=== PATIENT | male | born 1960 | race Caucasian/White ===

== ENCOUNTER 2019-01-30 17:20 | Inpatient (IN) ==
[2019-01-30] MEDS ORDERED: PULMICORT INH ONE (17:42)
[2019-01-30] MEDS ORDERED: XOPENEX NEB INH ONE (17:42)
[2019-01-30] MEDS ORDERED: SOLU-MEDROL IV ONE (17:42)
[2019-01-30] MEDS ORDERED: NS NEB INH SCH (17:45)
--- NOTE | 2019-01-30 17:49 | PROVIDER DOCUMENTATION ---
HPI-Respiratory General - General Chief Complaint: Shortness of Breath Stated Complaint: COPD / SHORTNESS OF BREATH Time Seen by Provider: 01/30/19 17:22 Allergies/Adverse Reactions: Patient Allergies Allergy/AdvReac Type Severity Reaction Status Date / Time No Known Allergies Allergy Verified 01/30/19 17:53 Home Medications: Home Medication List Medication Instructions Recorded Confirmed Last Taken Type Albuterol Sulfate [Albuterol 8.5 gm IH Q4H PRN PRN #2 hfa.[id number].ad 05/24/18 Unknown Rx Sulfate Hfa] Azithromycin [Zithromax Z-Garrett] 250 mg PO DIRECTED #1 pkg 05/24/18 Unknown Rx Prednisone [Deltasone] 20 mg PO DAILY #5 tablet 05/24/18 Unknown Rx - History of Present Illness-Resp Nature of Presenting Problem: Presents to the with complaints of SOB and sputum with greenish discoloration. Patient states that this started about 3 days ago. He states that he thinks he is having a COPD exacerbation because of a bacterial infection. He denies any fevers or chills or cough with sputum but states he has noticed coughing with whitish sputum that he then blows out of his nose that is green. He states that he quit smoking about 1 month ago. He has tried using his albuterol inhaler every 4 hours but it is not helping. Review of Systems - Adult - REVIEW OF SYSTEMS - ADULT Constitutional: reports: see HPI. denies: chills, fever Eyes: reports: no symptoms reported Ears, Nose, Mouth & Throat: reports: no symptoms reported Cardiovascular: denies: chest pain, palpitations Respiratory: reports: see HPI, cough, dyspnea on exertion, shortness of breath Gastrointestinal: reports: no symptoms reported Genitourinary: reports: no symptoms reported Musculoskeletal: reports: no symptoms reported Integumentary: reports: no symptoms reported Neurological: reports: no symptoms reported Psychiatric: reports: no symptoms reported Endocrine: reports: no symptoms reported Hematologic/Lymphatic: reports: no symptoms reported Allergic/Immunologic: reports: no symptoms reported All Other Systems: Reviewed and Negative Past History - Adult - PAST MEDICAL HISTORY-ADULT Review of Records: reports: Medications Reviewed Major Childhood Illnesses: reports: denies history Cardiovascular: reports: denies history Respiratory: reports: denies history Gastrointestinal: reports: denies history Obstetrical/Gynecological: reports: denies history Genitourinary: reports: denies history Musculoskeletal: reports: denies history Neurological: reports: denies history Psychiatric: reports: denies history Endocrine/Immune: reports: denies history Other Conditions: reports: denies history - PRIOR SURGERIES/PROCEDURES Surgical/Procedure History: reports: reviewed, not pertinent - IMMUNIZATION STATUS Childhood Immunizations: See Nurse Assessment Flu Vaccine: See Nurse Assessment - FAMILY HISTORY Family History: reviewed, not pertinent Physical Exam-General - CONSTITUTIONAL General Appearance: alert, mild distress - EYES Eyes: PERRL/EOMI - HEAD, EARS, NOSE, MOUTH & THROAT HENMT: normocephalic/atraumatic, moist mucous membranes - NECK Neck: non-tender, full range of motion, supple - RESPIRATORY Respiratory: chest non-tender, decreased breath sounds (diffusely), accessory muscle use (mild tachypnea but speaks in full sentences), wheezing (diffusely) - CARDIOVASCULAR Cardiovascular: normal peripheral pulses, no murmur, tachycardia - GASTROINTESTINAL (ABDOMEN) Abdominal Exam: normal bowel sounds, non tender, soft - LYMPHATIC Lymphatic: no adenopathy - MUSCULOSKELETAL Back Exam: normal inspection Extremity: normal range of motion, normal gait - SKIN Integumentary: normal color, warm/dry - NEUROLOGIC Neurologic: grossly normal, no motor/sensory deficits - PSYCHIATRIC Psych/Mental Status: normal mood/affect, oriented x 3 - HEART Score HEART Score: History: Slightly Suspicious HEART Score: Age: 45-65 Years HEART Score: Risk Factors for Atherosclerotic Disease: 1 or 2 Risk Factors Progress - PLAN OF CARE/RESULTS Progress/Plan/Lab Results: Vital Signs - 8 hr 01/30/19 17:25 01/30/19 17:32 01/30/19 17:40 Temperature 100.7 F H Pulse Rate 140 H 133 H 133 H Respiratory Rate 18 27 H 27 H Blood Pressure 165/77 145/92 O2 Sat by Pulse Oximetry 90 L 91 L 91 L 01/30/19 17:50 01/30/19 18:00 01/30/19 18:02 Temperature Pulse Rate 134 H 127 H 124 H Respiratory Rate 28 H 14 15 Blood Pressure 136/90 O2 Sat by Pulse Oximetry 91 L 97 97 01/30/19 18:10 01/30/19 18:20 01/30/19 18:30 Temperature Pulse Rate 118 H 108 H 116 H Respiratory Rate 28 H 27 H 18 Blood Pressure O2 Sat by Pulse Oximetry 92 L 93 L 91 L 01/30/19 18:31 01/30/19 18:40 01/30/19 18:50 Temperature Pulse Rate 119 H 113 H 115 H Respiratory Rate 21 21 17 Blood Pressure 147/95 O2 Sat by Pulse Oximetry 91 L 91 L 91 L 01/30/19 19:00 01/30/19 19:01 01/30/19 19:10 Temperature Pulse Rate 111 H 108 H 108 H Respiratory Rate 26 H 22 25 H Blood Pressure 158/85 O2 Sat by Pulse Oximetry 91 L 92 L 91 L 01/30/19 19:50 Temperature Pulse Rate 124 H Respiratory Rate 20 Blood Pressure O2 Sat by Pulse Oximetry 01/30/19 18:53 Influenza Screen - Final Nasopharyngeal Laboratory Results - last 24 hr 01/30/19 01/30/19 01/30/19 17:50 17:50 17:50 WBC 31.31 H RBC 5.25 Hgb 16.3 Hct 46.9 MCV 89.3 MCH 31.0 MCHC 34.8 RDW Std Deviation 12.6 Plt Count 225 MPV 10.9 H Immature Gran % (Auto) 0.6 H Neut % (Auto) 88.9 H Lymph % (Auto) 4.6 L [place] % (Auto) 5.7 Eos % (Auto) 0.1 Baso % (Auto) 0.1 Immature Gran # (Auto) 0.18 H Neut # (Auto) 27.87 H Lymph # (Auto) 1.43 [place] # (Auto) 1.77 H Eos # (Auto) 0.02 Baso # (Auto) 0.04 Segmented Neutrophils 92 H Band Neutrophils 2 H Lymphocytes 3 L Monocytes 3 Sodium 135 L Potassium 3.8 Chloride 100 Carbon Dioxide 22 L Anion Gap 13 BUN 12 Creatinine 0.9 Estimated GFR/1.73 m2 > 60 BUN/Creatinine Ratio 13 Glucose 135 H Calculated Osmolality 272 Calcium 8.9 Total Bilirubin 1.06 H AST 18 ALT 23 Alkaline Phosphatase 81 [id number] Pept Total Protein 7.1 Albumin 4.3 Globulin 2.8 Albumin/Globulin Ratio 1.5 Plasma Lactate 1.1 Urine Source Urine Color Urine Turbidity Urine pH Ur Specific [place] Urine Protein Ur Glucose (Stick) Ur Ketones (Stick) Urine Blood Urine Nitrite Urine Bilirubin Urobilinogen Dipstick Urine Leukocytes Urine WBC (Auto) Urine RBC (Auto) U Epithel Cells (Auto) Urine Bacteria (Auto) 03/21/19 03/21/19 17:50 17:59 WBC RBC Hgb Hct MCV MCH MCHC RDW Std Deviation Plt Count MPV Immature Gran % (Auto) Neut % (Auto) Lymph % (Auto) [place] % (Auto) Eos % (Auto) Baso % (Auto) Immature Gran # (Auto) Neut # (Auto) Lymph # (Auto) [place] # (Auto) Eos # (Auto) Baso # (Auto) Segmented Neutrophils Band Neutrophils Lymphocytes Monocytes Sodium Potassium Chloride Carbon Dioxide Anion Gap BUN Creatinine Estimated GFR/1.73 m2 BUN/Creatinine Ratio Glucose Calculated Osmolality Calcium Total Bilirubin AST ALT Alkaline Phosphatase Clq-P-Fvgtrinjrht Pept 106 Total Protein Albumin Globulin Albumin/Globulin Ratio Plasma Lactate Urine Source CLEAN CATCH Urine Color YELLOW Urine Turbidity CLEAR Urine pH 7.0 Ur Specific [place] 1.025 Urine Protein 30 A Ur Glucose (Stick) NEGATIVE Ur Ketones (Stick) 10 A Urine Blood TRACE A Urine Nitrite NEGATIVE Urine Bilirubin NEGATIVE Urobilinogen Dipstick 3 A Urine Leukocytes NEGATIVE Urine WBC (Auto) <10 Urine RBC (Auto) <10 U Epithel Cells (Auto) <10 Urine Bacteria (Auto) NEGATIVE Orders Category Date Time Status CHEST-2 VIEWS [RAD] Stat Exams 01/30/19 17:[address] THORAX W/O CONTRAST [CT] Stat Exams 01/30/19 20:20 Ordered BLOOD CULTURE [BLDCUL] Stat Lab 01/30/19 18:50 Results CBC WITH ELECTRONIC DIFF [HEME] Stat Lab 01/30/19 17:50 Completed COMPREHENSIVE METABOLIC PANEL [CHEM] Stat Lab 01/30/19 17:50 Completed INFLUENZA SCREEN A/B Stat Lab 01/30/19 18:53 Completed LACTATE, PLASMA [CHEM] Stat Lab 01/30/19 17:50 Completed LACTATE, PLASMA [CHEM] Stat Lab 01/30/19 18:43 Ordered PRO B-NATRIURETIC PEPTIDE Stat Lab 01/30/19 17:50 Completed URINALYSIS W/POSS RFLX CULT [URINALYSIS] Stat Lab 01/30/19 17:59 Completed URINE CULTURE [RM] Routine Lab 01/30/19 17:59 Received 0.9% Sodium Chloride Inj [Ns] 1,000 ml Med 01/30/19 18:32 Discontinued IV Wide Open mls/hr 0.9% Sodium Chloride Inj [Ns] 50 ml Med 01/30/19 18:49 Discontinued .ROUTE As directed Acetaminophen [Tylenol] Med 01/30/19 18:59 Discontinued 1,000 mg PO NOW ONE Azithromycin 500 mg/Ns [Zithromax 500 mg/Ns] Med 01/30/19 20:05 Discontinued 500 mg in 250 ml .ROUTE As directed Azithromycin 500 mg/Ns [Zithromax 500 mg/Ns] Med 01/30/19 18:45 Ordered 500 mg in 250 ml IV Q24H Budesonide [Pulmicort] Med 01/30/19 17:42 Discontinued 0.5 mg INH NOW ONE CefTRIAXONE [Rocephin] Med 01/30/19 18:48 Discontinued 1 gm .ROUTE .STK-MED ONE CefTRIAXONE [Rocephin] 1 gm Med 01/30/19 18:45 Ordered 0.9% Sodium Chloride Inj [Ns] 50 ml IV Q24H Levalbuterol Neb [Xopenex Neb] Med 01/30/19 17:42 Discontinued 1.25 mg INH NOW ONE Methylprednisolone Sod Succ [Solu-Medrol] Med 01/30/19 17:42 Discontinued 125 mg IV NOW ONE Sodium Chloride 0.9% Neb [Ns Neb] Med 01/30/19 17:45 Active 5 ml INH DIRECTED Aerosol Treatments Routine Oth 01/30/19 17:43 Completed Aerosol Treatments Stat Oth 01/30/19 17:43 Completed EKG [EKG] Stat Ther 01/30/19 17:28 Ordered Result Diagrams: 01/30/19 17:50 01/30/19 17:50 - REASSESSMENT Reassessment #1 Time Reassessed: 19:38 (assumed Care @ shift change. Pt feels better after neb, sitting comfortably. Sats 91-92 on RA. Heart- tachycardia, lunds- no wheezes, scattered coarse sounds, no rhonchi) - EKG 1 Time of EKG reading by physician:: 17:37 EKG Read and Signed by:: Marylin Arita EKG Interpretation (*Must complete 3 of following elements*): Abnormal Rate: 126 Rhythm: Sinus tachycardia QRS: PVC's - CONSULTS/PCP/HOSPITALIST Notification #1 *Consult/PCP/Hospitalist*: [place] Time Discussed: 20:21 Reason/Comments: requests CT of chest Consult Disposition: Will see in ED, Admit - CHANGE OF SHIFT REPORT (ED Provider) 1 Report Given and Care Transferred to:: Dr Ramires Time of Transfer: 19:00 Items Pending: XRAY Results Comment: anticipate admission Departure - Departure Date of Disposition Decision: 01/30/19 Time of Disposition Decision: 20:22 DIAGNOSIS: COPD exacerbation Leukocytosis Qualifiers: Leukocytosis type: unspecified Qualified Code(s): D72.829 - Elevated white blood cell count, unspecified Disposition: ADMITTED INPATIENT 09 Certified Medical Emergency: Emergent Condition: Good Referrals and Follow-Ups: None,PCP [Primary Care Provider] - - Critical Care Note This patient required my direct & personal management of CC.: No Attestation - Physician/ ELIAN Attestation Patient care was provided by Advanced Practice Provider:: No The physician spent face to face time with patient:: Yes Advanced Practice Provider documentation review:: Supervising physician onsite and consulted in the evaluation and care of this patient. The physician did have a face to face encounter with the patient.
[2019-01-30 18:08] LABS: URINE SOURCE CLEAN CATCH
[2019-01-30 18:11] LABS: BILIRUBIN URINE NEGATIVE (NEGATIVE); BLOOD URINE TRACE (NEGATIVE); COLOR YELLOW; GLUCOSE URINE NEGATIVE (NEGATIVE); KETONE URINE 10 mg/dL (NEGATIVE); LEUKOCYTES URINE NEGATIVE (NEGATIVE); NITRITE URINE NEGATIVE (NEGATIVE); PROTEIN URINE 30 mg/dL (NEGATIVE); SP GRAVITY URINE 1.025; TURBIDITY URINE CLEAR (CLEAR); UR EPITHELIAL CELLS <10 /HPF (<10); URINE BACTERIA NEGATIVE /HPF; URINE RBC <10 /HPF (<10); URINE WBC <10 /HPF (<10); UROBILINOGEN URINE 3 mg/dL (NORMAL)
[2019-01-30 18:14] LABS: BASO# 0.04 X1000 (0.0-0.2); BASO% 0.1 % (0.0-0.8); EOS# 0.02 X1000 (0.0-0.7); EOS% 0.1 % (0.0-10.0); HEMATOCRIT 46.9 % (42.0-52.0); HEMOGLOBIN 16.3 g/dL (14.0-18.0); IMM GRAN# 0.18 X1000 (0.0-0.04); IMM GRAN% 0.6 % (0.0-0.5); LYMPH# 1.43 X1000 (1.2-3.4); LYMPH% 4.6 % (20.5-51.1); MCHC 34.8 g/dL (33-37); MCV 89.3 FL (81-99); MONO# 1.77 X1000 (0.11-0.59); MONO% 5.7 % (1.7-9.3); MPV 10.9 FL (7.4-10.4); NEUT# 27.87 X1000 (1.4-6.5); NEUT% 88.9 % (42.2-75.2); PLT 225 X1000 (130-400); RBC 5.25 XMIL (4.7-6.1); RDW 12.6 % (11.5-14.5); WBC 31.31 X1000 (4.8-10.8)
[2019-01-30 18:30] LABS: AGAP 13; ALB/GLOB RATIO 1.5; ALBUMIN 4.3 g/dL (3.5-5.0); ALKALINE PHOSPHATASE 81 U/L (32-122); BUN 12 mg/dL (8-22); CALCIUM 8.9 mg/dL (8.8-10.2); CHLORIDE 100 mmol/L (98-107); COSMO 272; CREATININE 0.9 mg/dL (0.7-1.2); ESTIMATED GFR > 60; GLUCOSE 135 mg/dL (70-104); GOT 18 U/L (10-34); GPT 23 U/L (10-44); POTASSIUM 3.8 mmol/L (3.5-5.1); SODIUM 135 mmol/L (136-145); TCO2 22 mmol/L (25-35); TOTAL BILIRUBIN 1.06 mg/dL (0.20-1.00); TOTAL PROTEIN 7.1 g/dL (6.3-8.3)
[2019-01-30] MEDS ORDERED: NS 1,000 ML IV ONE (18:32)
[2019-01-30 18:37] LABS: BANDS 2 % (0-1); LYMPHS 3 % (21-51); MONO 3 % (1-9); SEGS 92 % (42-75)
[2019-01-30] MEDS ORDERED: ROCEPHIN 1 GM in NS 50 ML IV SCH (18:45)
[2019-01-30] MEDS ORDERED: ZITHROMAX 500 MG/NS 500 MG/250 ML IVPB IV SCH (18:45)
[2019-01-30] MEDS ORDERED: ROCEPHIN ONE (18:48)
[2019-01-30] MEDS ORDERED: NS 50 ML ONE (18:49)
[2019-01-30] MEDS ORDERED: TYLENOL PO ONE (18:59)
--- NOTE | 2019-01-30 19:28 | Diag Imaging Result Doc PS360 ---
EXAM: CHEST-2 VIEWS 01/30/2019 HISTORY: COPD TECHNIQUE: PA and lateral chest COMMENT: The inspiration is less optimal than the previous examination, otherwise compared to the previous study of 05/24/2018 there has been no significant change in the appearance of the chest. IMPRESSION: No acute disease. Electronically signed by David Eddy 01/30/2019 7:26 PM
[2019-01-30] MEDS ORDERED: ZITHROMAX 500 MG/NS 500 MG/250 ML IVPB ONE (20:05)
--- NOTE | 2019-01-30 21:12 | Diag Imaging Result Doc PS360 ---
EXAM: CT THORAX W/O CONTRAST 01/30/2019 HISTORY: leukocytosis TECHNIQUE: This exam was performed using automated exposure control, adjustment of mA or kV according to patient size, and/or use of iterative reconstruction technique. COMMENT: The current examination is compared with the previous study of 03/31/2018. There are no abnormal fluid collections. There are patchy alveolar opacities in both lower lobes, the right middle lobe, and both upper lobes. The groundglass opacity which was previously present in the right middle lobe is no longer present but otherwise these findings were not present previously. The regional skeleton is intact. There are granulomatous calcifications in the right hilum. IMPRESSION: Bronchopneumonia. Electronically signed by David Eddy 01/30/2019 9:10 PM
--- NOTE | 2019-01-30 21:26 | HISTORY AND PHYSICAL ---
REASON FOR ADMISSION: Cough, shortness of breath for the last 4 days. HISTORY OF PRESENT ILLNESS: Mr. Lalo Tobar is a 58-year-old male with past medical history of COPD, who quit smoking a month ago. He says that since 4 days ago, he has been having sinus congestion, postnasal drip, culminating in increasing cough, nonproductive with worsening shortness of breath, more so with exertion. No chest pain or palpitations or anginal type symptoms. No leg swelling, extremity redness or pain, long distance travel, PND or orthopnea. No fever or chills. Had used his MDI rescue inhaler but not much relief and decided to get checked out in the ER. No GI or complaints, no focal neurological complaints. No outbreak of any rash, no joint swelling, polyuria, or polydipsia. REVIEW OF SYSTEMS: Twelve system review with nonpositive findings. ALLERGIES: No known allergies. MEDICATIONS: Albuterol MDI p.r.n. PAST SURGICAL HISTORY: Appendectomy, right arm surgery and testicular surgery. SOCIAL HISTORY: Does not smoke, drink or use illicit drugs. FAMILY HISTORY: No first degree relatives with heart disease or asthma. LABORATORY WORK: White count 71,000, hemoglobin and hematocrit 16 and 46, platelets 221 with 89% neutrophils. His sodium is 135, BUN is 12, creatinine 0.9, glucose 135, total bilirubin is 1. Urinalysis trace protein, ketones, blood. Chest x-ray, poor inspiratory effort, no overt infiltrate noted. Flu screen was negative. PHYSICAL EXAMINATION: VITAL SIGNS: Temperature is 100.7, pulse rate if 124, blood pressure 158/85, he is 91% on room air. When he ambulates it still stays 91% or 92%. GENERAL APPEARANCE: He is a middle aged man in very mild respiratory distress. He is alert and oriented to person, time, with normal mood and affect. HEAD: Normocephalic. EYES: PERRL. EOMI. He is anicteric, not pale. ENT: Oropharynx exam is grossly normal. NECK: Supple. No JVD, carotid bruits, or thyromegaly. CHEST: Diffuse wheezes in both lung dodge. There are a few coarse rales in the upper lobes. Decreased air entry in both dodge. CARDIOVASCULAR: First and second heart sounds heard. No gallops, murmurs or rubs. Rhythm is regular. ABDOMEN: Full, soft. No masses or megaly appreciated. Bowel sounds are normal.. RECTAL EXAM: Deferred at this time. EXTREMITIES: Good distal pulses in all extremities, symmetrical and regular. No edema, clubbing or peripheral cyanosis. No areas of tenderness in the lower extremities. NEUROLOGIC: No gross focal deficits. SKIN: Intact with no breakdown or erythema. . MUSCULOSKELETAL: Grossly normal. ASSESSMENT: 1. Chronic obstructive pulmonary disease exacerbation. 2. Leukocytosis with shortness of breath and fever. Consider pneumonia. 3. Hyponatremia. 4. Elevated blood pressure. PLAN: The patient will be admitted and treated for presumptive COPD exacerbation and/or underlying pneumonia. We will start the patient on short and longer-acting bronchodilator, steroids. We will start the patient on Zithromax and Rocephin pending noncontrast CT scan to rule out officially pneumonia. This is done because the patient could not take a full, deep inspiratory effort and admission clinical presentation, pneumonia is highly likely, i.e., dyspnea, white count and fever with a cough. We will await CT scan findings and a procalcitonin level will be beneficial in this kind of person to sway whether this is a reactive leukocytosis or the patient truly has pneumonia. cc: Cyndy Larry MD MTDD
[2019-01-30] MEDS ORDERED: ZITHROMAX PO ONE (22:21)
[2019-01-30] MEDS ORDERED: TYLENOL PO PRN (22:21)
[2019-01-30] MEDS ORDERED: ZOFRAN IV PRN (22:21)
[2019-01-30] MEDS: LOVENOX SUBQ SCH (23:05)
[2019-01-31] MEDS: DUONEB (A & A) INH SCH ×4 (03:08→21:08)
[2019-01-31 07:14] LABS: BASO# 0.01 X1000 (0.0-0.2); HEMATOCRIT 45.3 % (42.0-52.0); HEMOGLOBIN 15.2 g/dL (14.0-18.0); IMM GRAN# 0.06 X1000 (0.0-0.04); IMM GRAN% 0.2 % (0.0-0.5); LYMPH# 1.27 X1000 (1.2-3.4); MCH 30.6 PG (27-31); MCHC 33.6 g/dL (33-37); MCV 91.1 FL (81-99); MONO# 0.67 X1000 (0.11-0.59); MONO% 2.6 % (1.7-9.3); MPV 11.4 FL (7.4-10.4); NEUT% 92.2 % (42.2-75.2); PLT 216 X1000 (130-400); RBC 4.97 XMIL (4.7-6.1); RDW 12.7 % (11.5-14.5); WBC 25.51 X1000 (4.8-10.8)
[2019-01-31 07:41] LABS: AGAP 11; BUN 16 mg/dL (8-22); CALCIUM 9.1 mg/dL (8.8-10.2); CHLORIDE 105 mmol/L (98-107); COSMO 283; CREATININE 0.8 mg/dL (0.7-1.2); ESTIMATED GFR > 60; GLUCOSE 141 mg/dL (70-104); POTASSIUM 4.3 mmol/L (3.5-5.1); SODIUM 140 mmol/L (136-145); TCO2 24 mmol/L (25-35)
[2019-01-31] MEDS: PREDNISONE PO SCH (08:48)
--- NOTE | 2019-01-31 08:48 | EKG Report ---
Test Performed on : 01/30/2019 5:33:19 PM Test Reason : TACHYCARDIA/SOB Blood Pressure : / mmHG Vent. Rate : 126 BPM Atrial Rate : 126 BPM P-R Int : 116 ms QRS Dur : 084 ms QT Int : 288 ms P-R-T Axes : 070 096 060 degrees QTc Int : 417 ms Sinus tachycardia. with frequent premature ventricular complexes. Possible Left atrial enlargement Rightward axis Borderline ECG When compared with ECG of 24-MAY-2018 03:11, premature ventricular complexes. are now present premature supraventricular complexes. are no longer present [place] interval has increased Unconfirmed Result
[2019-01-31] MEDS: ZITHROMAX PO SCH (08:49)
[2019-01-31] MEDS: BROVANA NEB INH SCH ×2 (09:40→21:08)
[2019-01-31] MEDS ORDERED: BROVANA NEB ONE ×2 (09:45→21:07)
--- NOTE | 2019-01-31 13:26 | PROGRESS NOTE ---
DATE: 01/31/2019 INTERVAL HISTORY: The patient's dyspnea markedly improved. Still with some largely nonproductive cough. No other acute events overnight. No new complaints. REVIEW OF SYSTEMS: A 12-point review of systems was negative except as per interval history. LABORATORY: WBC 25.5, CBC otherwise unremarkable. Basic metabolic panel remarkably only for a glucose of 141. IMAGING: CT chest with patchy alveolar opacity in both lower lobes, the right middle lobe, and both upper lobes consistent with bronchopneumonia. VITALS: T-max 100.7, pulse 84, respirations 18, blood pressure 138/86, O2 saturation 95% on room air. PHYSICAL EXAMINATION: General: No acute distress. Vitals: As above. HEENT: Normocephalic, atraumatic. Moist mucous membranes. No cervical adenopathy. Cardiovascular: Regular rate and rhythm. No murmurs, rubs, or gallops noted. Pulmonary: Mildly decreased air entry throughout, faint end-expiratory wheeze, a few scattered crackles. Abdomen: Soft, nontender, nondistended, bowel sounds positive. Extremities: Peripheral pulses intact. No clubbing, cyanosis, or edema. Neurologic: Cranial nerves grossly intact. No focal defects identified. Psychiatric: Normal mood and affect. Awake, alert, and oriented x3. Skin: No new rashes or lesions identified. ASSESSMENT AND PLAN: 1. Chronic obstructive pulmonary disease with exacerbation, pneumonia. The patient symptomatically improving rapidly with antibiotics, steroids, and DuoNebs. Still some wheezing but moving air pretty well. Will continue Rocephin and azithromycin. Continue steroids and DuoNebs. If patient continues to improve, then can likely be transitioned p.o. antibiotics and discharged tomorrow. 2. Hyponatremia now resolved. Continue to monitor labs. 3. Hyperglycemia pretty mild likely steroid-induced. 4. Hypertension not on any blood pressure medication at home. If blood pressure remains elevated then will likely initiate antihypertensive therapy. 5. Former smoker. The patient quit approximately 1 month ago. I reemphasized the importance of continued cessation.
[2019-01-31] MEDS ORDERED: ROCEPHIN 1 GM in NS 50 ML IV SCH (19:00)
[2019-01-31] MEDS: LOVENOX SUBQ SCH (22:00)
[2019-02-01] MEDS: DUONEB (A & A) INH SCH ×2 (03:07→10:51)
[2019-02-01 07:31] LABS: BASO# 0.04 X1000 (0.0-0.2); BASO% 0.2 % (0.0-0.8); EOS# 0.08 X1000 (0.0-0.7); EOS% 0.4 % (0.0-10.0); HEMATOCRIT 42.7 % (42.0-52.0); HEMOGLOBIN 14.1 g/dL (14.0-18.0); IMM GRAN# 0.09 X1000 (0.0-0.04); IMM GRAN% 0.4 % (0.0-0.5); LYMPH% 14.1 % (20.5-51.1); MCH 30.4 PG (27-31); MONO# 1.37 X1000 (0.11-0.59); MONO% 6.2 % (1.7-9.3); MPV 11.5 FL (7.4-10.4); NEUT# 17.31 X1000 (1.4-6.5); NEUT% 78.7 % (42.2-75.2); PLT 188 X1000 (130-400); RBC 4.64 XMIL (4.7-6.1); RDW 12.9 % (11.5-14.5); WBC 21.99 X1000 (4.8-10.8)
[2019-02-01 07:53] LABS: HEMOGLOBIN A1C 5.5 % (4.8-6.0)
[2019-02-01 07:55] LABS: AGAP 13; BUN 16 mg/dL (8-22); CALCIUM 8.6 mg/dL (8.8-10.2); CHLORIDE 108 mmol/L (98-107); COSMO 288; CREATININE 0.9 mg/dL (0.7-1.2); ESTIMATED GFR > 60; GLUCOSE 107 mg/dL (70-104); POTASSIUM 3.9 mmol/L (3.5-5.1); SODIUM 144 mmol/L (136-145); TCO2 23 mmol/L (25-35)
[2019-02-01] MEDS ORDERED: BROVANA NEB ONE (08:10)
[2019-02-01 08:28] VITALS: BP 139/68
[2019-02-01] MEDS: ZITHROMAX PO SCH (09:42)
[2019-02-01] MEDS: PREDNISONE PO SCH (09:42)
[2019-02-01] MEDS: BROVANA NEB INH SCH (10:50)
--- NOTE | 2019-02-02 03:45 | DISCHARGE SUMMARY ---
ADMISSION DATE: 01/30/2019 DISCHARGE DATE: 02/01/2019 ADMISSION DIAGNOSES: 1. Chronic obstructive pulmonary disease exacerbation. 2. Leukocytosis with fever. 3. Hyponatremia. 4. Hypertension. DISCHARGE DIAGNOSES: 1. Chronic obstructive pulmonary disease exacerbation. 2. Bronchopneumonia. 3. Hyponatremia, resolved. 4. Hyperglycemia, steroid induced. 5. Hypertension. CONSULTATIONS: None. DIAGNOSTIC PROCEDURES AND FINDINGS: EKG on 01/30/2019 showing sinus tachycardia with PVCs; no acute ST or T abnormalities. Chest x-ray on 01/30/2019 with no acute process. Chest CT on 01/30/2019 showing bronchopneumonia bilateral lower lobes. HOSPITAL COURSE: Mr. Tobar is a 58-year-old male with a history of COPD who quit smoking 1 month prior to admission. He has been having 4 days of sinus congestion, postnasal drip, cough which is nonproductive in nature, and dyspnea mostly with exertion. He used his budesonide inhaler at home but it did not improve his symptoms and he decided to come to the ER for evaluation. In the ER, he was noted to have a white count of 31,000 with tachycardia and fever. This was concerning for pneumonia. He was admitted for COPD exacerbation and a subsequent CT of his chest did reveal bilateral lower lobe bronchopneumonia. He was admitted and placed on IV antibiotics, steroid therapy, breathing treatments, and aggressive pulmonary toilet. He improved rapidly, within 24 hours. He is now much improved with regards to his breathing and his cultures have not grown any organisms. Flu test was negative. He has reached maximum benefit of inpatient hospitalization and is now stable for discharge home. DISCHARGE MEDICATIONS: 1. Albuterol HFA inhaled q.4h as needed. 2. Medrol Dosepak. 3. Levaquin 750 mg p.o. daily for 7 days. DISCHARGE DIET: Heart Healthy. DISCHARGE LABORATORY DATA: WBC 21.99, hemoglobin 14.1, hematocrit 42.7, platelet count 188. Sodium 144, potassium 3.9, chloride 108, CO2 of 23, anion gap 13, BUN 16, creatinine 0.9, glucose 107. Hemoglobin A1C was 5.5. Calcium 8.6. Urinalysis negative. DISCHARGE ACTIVITY: Resume activity as tolerated. DISPOSITION AND OTHER DISCHARGE INSTRUCTIONS: The patient is discharged home to self-care. He is to follow up with his PCP within the next week to 2 weeks or sooner if needed. He is to return to the ER or call 911 for worsening complaints or concerns. All discharge questions were answered. DISCHARGE TIME: Greater than 35 minutes. Dictated by LAUREN Munguia for Luisito Ding MD cc: LAUREN Munguia wheezing resolved. dyspnea back to baseline. still with some sinus drainage and frontal sinus tenderness. may still be viral but it has been going on long enough that we will treat him with a short course of augmentin. otherwise stable for discharge home on a short steroid taper for his copd exacerbation. MTDD
== END 2019-02-01 13:11 | disposition home or self-care (01) | DRG 190 ==
LOC: ED 17:20 → SUATTDRO 22:02 → 3N 22:02
PROVIDERS: ATTEND Internal Medicine
CPT/HCPCS: 71020; 71046; 71250; 80048; 80053; 81001; 83036; 83605; 83880; 85025; 87040; 87088; 87275; 87276; 87804; 93005; 94640; 94761; 96361; 96365; 96367; 96375; 99285; A9270; J0456; J0696; J1650; J2930; J7030; J7506; J7512